=== PATIENT | male | born 1995 | race American Indian/Alaskan Native ===

== ENCOUNTER 2021-05-28 11:52 | Emergency (ER) | payer SELFPAY ==
[2021-05-28 12:03] VITALS: BP 111/86
--- NOTE | 2021-05-28 12:39 | Emergency Department Report ---
ED General Adult HPI - General Chief complaint: Sore Throat Stated complaint: THROAT PAIN AND BURPING Time Seen by Provider: 05/28/21 12:19 Source: patient Mode of arrival: Ambulatory Limitations: No Limitations - History of Present Illness Initial comments: Patient is a 25-year-old male presents emergency with complaints of intermittent throat discomfort for a couple weeks. He states he is tolerating p.o. intake without difficulty and has no difficulty with swallowing. He states he also was experiencing some right-sided ear pain. He reports that he feels like he needs to burp. He denies any burning sensation or metallic taste. He denies any fever, throat swelling, vomiting, diarrhea. No allergies to medicines. Severity scale (0 -10): 5 - Related Data Home Medications Medication Instructions Recorded Confirmed Last Taken No Known Home Medications [No 05/28/21 05/28/21 Unknown Reported Home Medications] Allergies Allergy/AdvReac Type Severity Reaction Status Date / Time No Known Allergies Allergy Verified 05/28/21 12:05 ED Review of Systems ROS: Stated complaint: THROAT PAIN AND BURPING Other details as noted in HPI Comment: All other systems reviewed and negative ED Past Medical Hx - Social History Smoking Status: Never Smoker Substance Use Type: None - Medications Home Medications: Home Medications Medication Instructions Recorded Confirmed Last Taken Type No Known Home Medications [No 05/28/21 05/28/21 Unknown History Reported Home Medications] ED Physical Exam - General Limitations: No Limitations General appearance: alert, in no apparent distress - Head Head exam: Present: atraumatic, normocephalic - Eye Eye exam: Present: normal appearance - ENT ENT exam: Present: normal orophraynx, mucous membranes moist, TM's normal bilaterally, normal external ear exam, other (no tonsillar hypertrophy or exudates, no erythema, uvula is midline, no uvular edema or deviation, no trismus, no tongue elevation, no muffled voice) - Neck Neck exam: Absent: lymphadenopathy, thyromegaly - Respiratory Respiratory exam: Present: normal lung sounds bilaterally. Absent: respiratory distress, wheezes, rales, rhonchi, stridor, chest wall tenderness, accessory muscle use, decreased breath sounds, prolonged expiratory - Cardiovascular Cardiovascular Exam: Present: regular rate, normal rhythm, normal heart sounds. Absent: systolic murmur, diastolic murmur, rubs, gallop - Neurological Exam Neurological exam: Present: alert, oriented X3 - Psychiatric Psychiatric exam: Present: normal affect, normal mood - Skin Skin exam: Present: warm, dry, intact ED Course Vital Signs 05/28/21 05/28/21 05/28/21 11:57 12:02 12:03 Temperature 98.1 F 98.6 F Pulse Rate 79 71 Respiratory 20 16 Rate Blood Pressure 112/72 111/86 [Right] O2 Sat by Pulse 98 99 99 Oximetry ED Medical Decision Making - Medical Decision Making Patient is a 25-year-old male presents emergency with complaints of intermittent throat discomfort for a couple weeks. He states he is tolerating p.o. intake without difficulty and has no difficulty with swallowing. He states he also was experiencing some right-sided ear pain. He reports that he feels like he needs to burp. He denies any burning sensation or metallic taste. He denies any fever, throat swelling, vomiting, diarrhea. No allergies to medicines. Vitals are normal. On exam no tonsillar hypertrophy or exudates, no erythema, uvula is midline, no uvular edema or deviation, no trismus, no tongue elevation, no muffled voice, no obvious thyromegaly, no neck edema, no lymphadenopathy. Centor criteria negative, do not suspect strep throat. Advised patient Please follow-up with a ear nose and throat doctor. Return to emergency room for any new or worsening symptoms. May use Pepcid and Maalox [id number]. Critical care attestation.: If time is entered above; I have spent that time in minutes in the direct care of this critically ill patient, excluding procedure time. ED Disposition Clinical Impression: Throat discomfort Ear discomfort Qualifiers: Laterality: right Qualified Code(s): H92.01 - Otalgia, right ear Disposition: HOME / SELF CARE / HOMELESS Is pt being admited?: No Does the pt Need Aspirin: No Condition: Stable Instructions: Sore Throat, Earache, Adult Additional Instructions: Please follow-up with a ear nose and throat doctor. Return to emergency room for any new or worsening symptoms. May use Pepcid and Maalox [id number]. Referrals: ALVINO BENEDICT MD [Staff Physician] - 3-5 Days MALINDA PHAN MD [Referring] - 3-5 Days Time of Disposition: 12:38 Print Language: LITHUANIAN
== END 2021-05-28 13:16 | disposition home or self-care (01) ==
LOC: ED 11:52
DX: H92.01 Otalgia, right ear (principal); R07.0 Pain in throat
CPT/HCPCS: 99282

== ENCOUNTER 2021-09-21 21:02 | Emergency (ER) | payer SELFPAY ==
[2021-09-21 21:58] VITALS: BP 119/78
== END 2021-09-22 04:00 | disposition left against medical advice (07) ==
LOC: ED 21:02
DX: M79.642 Pain in left hand (principal); Z53.21 Procedure and treatment not carried out due to patient leaving prior to being seen by health care provider

== ENCOUNTER 2022-02-26 00:12 | Emergency (ER) | payer BC ==
[2022-02-26] MEDS ORDERED: fentaNYL 100 MCG/2 ML INJ IV ONE ×2 (00:41→01:37)
--- NOTE | 2022-02-26 01:25 | Emergency Department Report ---
ED General Adult HPI - General Chief complaint: Urogenital-Male Stated complaint: GROIN PAIN PUI?: No Time Seen by Provider: 02/26/22 01:16 Source: patient Mode of arrival: Ambulatory Limitations: No Limitations - History of Present Illness Initial comments: TRIAGE NURSE BROUGHT TO MY ATTENTION THAT PATIENT IN REASSESSMENT AREA MAY HAVE TESTICULAR TORSION AND I VERBALLY INFORMED HER TO ORDER US OF TESTICULAR IMMEDIATELY AND FENTANYL. NURSE BROUGHT TO MY ATTENTION THAT US HAS BEEN ORDER BUT TECH IS WALKING TO OBGYN FOR US; I HAVE INFORMED NURSE TO LET THE US TECH KNOW TO COME BACK IMMEDIATELY UNLESS THERE IS LIFE THREATENING NEED OF US IN OBGYN. ON MY ARRIVAL AT REASSESSMENT, PATIENT HAVE IV ACCESS AND FENTANYL GIVEN. P ATIENT STATES PAIN IS MUCH BETTER AND FELT SUDDEN ONSET OF RIGHT SIDED TESTICLE PAIN ABOUT 1 HOUR AGO. ON MY EVALUATION, THE RIGHT SIDED TESTICULAR IS HIGHER THAN THE LEFT AND APPEARS HORIZONEAL Severity scale (0 -10): 9 - Related Data Home Medications Medication Instructions Recorded Confirmed Last Taken No Known Home Medications [No 05/28/21 05/28/21 Unknown Reported Home Medications] Allergies Allergy/AdvReac Type Severity Reaction Status Date / Time No Known Allergies Allergy Verified 05/28/21 12:05 ED Review of Systems ROS: Stated complaint: GROIN PAIN Other details as noted in HPI ED Past Medical Hx - Past Medical History Previous Medical History?: Yes - Surgical History Past Surgical History?: Yes - Social History Smoking Status: Unknown if ever smoked Substance Use Type: None - Medications Home Medications: Home Medications Medication Instructions Recorded Confirmed Last Taken Type No Known Home Medications [No 05/28/21 05/28/21 Unknown History Reported Home Medications] ED Physical Exam - General Limitations: No Limitations ED Course - Reevaluation(s) Reevaluation #1: 02/26/22 02:58 PER US JHONNY WHO FINISHED THE EXAM, THERE IS GOOD BLOOD FLOW TO BOTH TESTIS; PENDING OFFICIAL READ BY RADIOLOGIST. ED Medical Decision Making - Lab Data Result diagrams: 02/26/22 01:25 02/26/22 01:25 Critical care attestation.: If time is entered above; I have spent that time in minutes in the direct care of this critically ill patient, excluding procedure time. ED Disposition Clinical Impression: Hydrocele in adult Disposition: 01 HOME / SELF CARE / HOMELESS Is pt being admited?: No Does the pt Need Aspirin: No Condition: Stable Instructions: Hydrocele, Adult Additional Instructions: Make a follow-up appointment with your urologist of your choice to be seen within 3 days for further outpatient evaluation of your hydrocele. Referrals: SAMIR SAL MD [Primary Care Provider] - 3-5 Days Time of Disposition: 03:44
[2022-02-26 01:55] LABS: Hematocrit 45.7 % (35.5-45.6); Hemoglobin 14.8 gm/dl (11.8-15.2); Mean Corpuscular HGB Conc 32 % (32-34); Mean Corpuscular Volume 86 fl (84-94); Platelet Count 282 K/mm3 (140-440); Red Blood Count 5.29 M/mm3 (3.65-5.03); Red Cell Distribution Width 13.2 % (13.2-15.2)
[2022-02-26 02:06] LABS: INR 0.95 (0.87-1.13)
[2022-02-26 02:07] LABS: Partial Thromboplastin Time 31.3 Sec. (24.2-36.6)
[2022-02-26 02:10] LABS: Alanine Aminotransferase 17 units/L (7-56); Albumin 4.6 g/dL (3.9-5); BUN/Creatinine Ratio 15; Blood Urea Nitrogen 15 mg/dL (9-20); Calcium 8.8 mg/dL (8.4-10.2); Hemolysis Index 12
--- NOTE | 2022-02-26 03:38 | Ultrasound Report ---
ULTRASOUND SCROTUM INDICATION / CLINICAL INFORMATION: RT TESTICLE PAIN. COMPARISON: None available. FINDINGS -- RIGHT TESTIS: Size = 3.9 x 1.9 x 3.2 cm. - Appearance: No significant abnormality. - Cyst or Mass: None. - Color Doppler Flow: No significant abnormality. EPIDIDYMIS: No significant abnormality. Incidental note of a 4 mm epididymal cyst. HYDROCELE: Very small right hydrocele. VARICOCELE: None demonstrated. FINDINGS -- LEFT TESTIS: Size = 3.9 x 2.2 x 3.4 cm cm. - Appearance: No significant abnormality. - Cyst or Mass: None. - Color Doppler Flow: No significant abnormality. EPIDIDYMIS: No significant abnormality. HYDROCELE: None. VARICOCELE: None demonstrated. ADDITIONAL FINDINGS: None. IMPRESSION: 1. Very small right hydrocele. 2. Both testes are unremarkable. No evidence of testicular mass or torsion. Signer Name: Tanvi Luna MD Signed: 02/26/2022 3:34 AM Workstation Name: [id number]
[2022-02-26] MEDS ORDERED: KETOROLAC 30 MG/1 ML INJ IV ONE (03:44)
== END 2022-02-26 04:07 | disposition home or self-care (01) ==
LOC: ED 00:12
DX: N43.3 Hydrocele, unspecified (principal); R79.1 Abnormal coagulation profile; Z98.890 Other specified postprocedural states; Z79.899 Other long term (current) drug therapy
CPT/HCPCS: 36415; 80053; 85027; 85610; 85730; 93975; 96374; 96376; 99284; J3010; 96375